=== PATIENT | female | born 1975 | race Caucasian/White ===

== ENCOUNTER 2020-08-25 05:55 | Emergency (ER) | payer OTHER, SELFPAY ==
[2020-08-25] MEDS ORDERED: Alum Hydroxide/Mag Hydroxide 15 ML, Lidocaine 2% 15 ML PO ONE ×2 (06:37)
[2020-08-25] MEDS ORDERED: Acetaminophen/oxyCODONE 325-5 MG Tab PO STA (06:41)
[2020-08-25] MEDS ORDERED: Ketorolac 60 MG/2 ML SDV IM ONE (06:41)
[2020-08-25] MEDS ORDERED: Morphine 4 MG/ML VIAL IM STA (06:55)
--- NOTE | 2020-08-25 07:02 | EDM.PDOC ---
ED HPI GENERAL MEDICAL PROBLEM - General Chief Complaint: Abdominal Pain Stated Complaint: STOMACH PAIN Time Seen by Provider: 08/25/20 06:00 Source of Information: Reports: Patient, Family History Limitations: Reports: No Limitations - History of Present Illness INITIAL COMMENTS - FREE TEXT/NARRATIVE: Patient presented to the ED because of epigastric and right upper quadrant pain. the pain is sharp, 8/10. There is nausea and vomiting x1. There is no fever or chills, changes in bowel movements or urinary symptoms. upper right abd pain Pain Score (Numeric/FACES): 6 - Related Data Allergies Allergy/AdvReac Type Severity Reaction Status Date / Time Penicillins Allergy Hives Verified 08/25/20 06:11 Home Meds: Home Meds Esomeprazole Magnesium [Nexium] 20 mg PO DAILY 08/25/20 [History] FLUoxetine HCl [Fluoxetine] 20 mg PO DAILY 08/25/20 [History] Methylphenidate HCl [Methylphenidate ER] 30 mg PO DAILY 08/25/20 [History] traZODone 50 mg PO BEDTIME 08/25/20 [History] Past Medical History Respiratory History: Reports: Asthma Gastrointestinal History: Reports: GERD Psychiatric History: Reports: ADHD, Depression Social & Family History - Tobacco Use Tobacco Use Status *Q: Former Tobacco User Used Tobacco, but Quit: Yes Month/Year Tobacco Last Used: 1999 ED ROS GENERAL - Review of Systems Review Of Systems: See Below Constitutional: Reports: No Symptoms HEENT: Reports: No Symptoms Respiratory: Reports: No Symptoms Cardiovascular: Reports: No Symptoms Endocrine: Reports: No Symptoms GI/Abdominal: Reports: Abdominal Pain : Reports: No Symptoms Musculoskeletal: Reports: No Symptoms Skin: Reports: No Symptoms Neurological: Reports: No Symptoms Psychiatric: Reports: No Symptoms ED EXAM, GI/ABD - Physical Exam Exam: See Below Exam Limited By: No Limitations General Appearance: Alert, No Apparent Distress Ears: Normal External Exam, Normal Canal, Hearing Grossly Normal Nose: Normal Inspection, Normal Mucosa, No Blood Throat/Mouth: Normal Inspection Head: Atraumatic, Normocephalic Neck: Normal Inspection, Supple, Non-Tender, Full Range of Motion Respiratory/Chest: No Respiratory Distress, Lungs Clear, Normal Breath Sounds, No Accessory Muscle Use, Chest Non-Tender Cardiovascular: Normal Peripheral Pulses, Regular Rate, Rhythm, No Edema, No Gallop, No JVD, No Murmur, No Rub GI/Abdominal Exam: Normal Bowel Sounds, Soft, No Organomegaly, No Distention, No Abnormal Bruit, Other (RUQ T) Back Exam: Normal Inspection, Full Range of Motion Extremities: Normal Inspection, Normal Range of Motion, Non-Tender, No Pedal Edema, Normal Capillary Refill Neurological: Alert, Oriented, CN II-XII Intact, Normal Cognition, Normal Gait, Normal Reflexes, No Motor/Sensory Deficits Psychiatric: Normal Affect, Normal Mood Skin Exam: Warm Course - Vital Signs Text/Narrative:: Lab result was discussed with patient and her mom Morphine 4 mg IM x1 Abdomnal US-see result US report was called in to patient at 11am and will follw up with her primary MD accordingly. Last Recorded V/S: Last Vital Signs Temp 36.9 C 08/25/20 05:55 Pulse 78 08/25/20 07:15 Resp 16 08/25/20 07:15 BP 120/85 08/25/20 07:15 Pulse Ox 98 08/25/20 07:15 - Orders/Labs/Meds Labs: Laboratory Tests 08/25/20 08/25/20 08/25/20 Range/Units 06:31 06:31 06:31 WBC 6.5 (3.0-10.3) x10-3/uL RBC 4.98 (3.60-5.20) x10(6)uL Hgb 14.2 (11.4-15.5) g/dL Hct 43.1 (34.2-48.2) % MCV 86.7 (76.7-100.5) fL MCH 28.5 (23.9-33.9) pg MCHC 32.8 (31.9-34.8) g/dL RDW 14.1 (12.3-16.5) % Plt Count 157 (151-488) x10(3)uL MPV 8.5 (7.1-12.4) fL Neut % (Auto) 57.6 (30.8-76.2) % Lymph % (Auto) 29.9 (18.4-52.1) % [place] % (Auto) 7.4 (4.4-15.7) % Eos % (Auto) 4.4 (0.6-8.1) % Baso % (Auto) 0.7 (0.2-1.5) % Neut # (Auto) 3.8 (1.5-6.3) x10-3/uL Lymph # (Auto) 1.9 (1.0-4.4) x10-3/uL [place] # (Auto) 0.5 (0.3-1.0) x10-3/uL Eos # (Auto) 0.3 (0.0-0.8) x10-3/uL Baso # (Auto) 0.0 (0.0-0.1) x10-3/uL Sodium 141 (135-145) mmol/L Potassium 3.6 (3.5-5.3) mmol/L Chloride 103 (100-110) mmol/L Carbon Dioxide 25 (21-32) mmol/L BUN 21 H (7-18) mg/dL Creatinine 1.3 H (0.55-1.02) mg/dL Est Cr Clr Drug Dosing 54.10 mL/min Estimated GFR (MDRD) 44 L (>60) BUN/Creatinine Ratio 16.2 (9-20) Glucose 117 H (80-116) mg/dL Calcium 8.3 L (8.6-10.2) mg/dL Total Bilirubin 0.4 (0.1-1.3) mg/dL AST 18 (5-25) IU/L ALT 44 H (12-36) U/L Alkaline Phosphatase 89 (56-112) IU/L Total Protein 6.7 (6.0-8.0) g/dL Albumin 3.3 L (3.5-5.2) g/dL Globulin 3.4 g/dL Albumin/Globulin Ratio 1.0 Amylase 38 (25-115) U/L Lipase (73-393) U/L 08/25/20 Range/Units 06:31 WBC (3.0-10.3) x10-3/uL RBC (3.60-5.20) x10(6)uL Hgb (11.4-15.5) g/dL Hct (34.2-48.2) % MCV (76.7-100.5) fL MCH (23.9-33.9) pg MCHC (31.9-34.8) g/dL RDW (12.3-16.5) % Plt Count (151-488) x10(3)uL MPV (7.1-12.4) fL Neut % (Auto) (30.8-76.2) % Lymph % (Auto) (18.4-52.1) % [place] % (Auto) (4.4-15.7) % Eos % (Auto) (0.6-8.1) % Baso % (Auto) (0.2-1.5) % Neut # (Auto) (1.5-6.3) x10-3/uL Lymph # (Auto) (1.0-4.4) x10-3/uL [place] # (Auto) (0.3-1.0) x10-3/uL Eos # (Auto) (0.0-0.8) x10-3/uL Baso # (Auto) (0.0-0.1) x10-3/uL Sodium (135-145) mmol/L Potassium (3.5-5.3) mmol/L Chloride (100-110) mmol/L Carbon Dioxide (21-32) mmol/L BUN (7-18) mg/dL Creatinine (0.55-1.02) mg/dL Est Cr Clr Drug Dosing mL/min Estimated GFR (MDRD) (>60) BUN/Creatinine Ratio (9-20) Glucose (80-116) mg/dL Calcium (8.6-10.2) mg/dL Total Bilirubin (0.1-1.3) mg/dL AST (5-25) IU/L ALT (12-36) U/L Alkaline Phosphatase (56-112) IU/L Total Protein (6.0-8.0) g/dL Albumin (3.5-5.2) g/dL Globulin g/dL Albumin/Globulin Ratio Amylase (25-115) U/L Lipase 59 L (73-393) U/L Meds: Medications Discontinued Medications Generic Name Dose Route Start Last Admin Trade Name Freq PRN Reason Stop Dose Admin Al Hydroxide/Mg Hydroxide 15 0 ml 08/25/20 06:37 ml/ Lidocaine HCl 15 ml PO 08/25/20 06:38 ONETIME ONE Ketorolac Tromethamine 60 mg 08/25/20 06:41 Ketorolac 60 Mg/2 Ml Sdv IM 08/25/20 06:42 ONETIME ONE Morphine Sulfate 4 mg 08/25/20 06:55 08/25/20 07:01 Morphine 4 Mg/Ml Vial IM 08/25/20 06:56 4 mg NOW STA Administration Oxycodone/Acetaminophen 2 tab 08/25/20 06:41 Acetaminophen/Oxycodone 325-5 Mg Tab PO 08/25/20 06:42 NOW STA Departure - Departure Time of Disposition: 07:00 Disposition: Home, Self-Care 01 Condition: Good Clinical Impression: Abdominal pain, Cholelithiasis - Discharge Information Instructions: Abdominal Pain, Adult, [id number] Referrals: PCP,None [Primary Care Provider] - Forms: ED Department Discharge Additional Instructions: Please read discharge instructions on abdominal pain Do not eat or drink until your abdominal ultrasound is done You are scheduled to have the Ultrasound @9 am today You can go home after the ultrasound, we will call you with the result Drink a lot of fluids after the ultrasound because you are dehydrated Sepsis Event Note (ED) - Evaluation Sepsis Screening Result: No Definite Risk - Focused Exam Vital Signs: Vital Signs Temp Pulse Resp BP Pulse Ox 08/25/20 07:15 78 16 120/85 98 08/25/20 05:55 36.9 C 89 17 148/83 H 99
--- NOTE | 2020-08-25 11:11 | US ---
INDICATION: Right upper quadrant pain. RIGHT UPPER QUADRANT/GALLBLADDER ULTRASOUND: Multiple ultrasonic images were obtained utilizing transabdominal probe with 2-D realtime and color flow imaging 08/24/20 - no comparison. The liver had a normal appearance. The gallbladder appears somewhat distended, but was not grossly enlarged. The wall of the gallbladder appears to be slightly prominent in thickness, but is not grossly thickened. There are noted multiple calculi with shadowing within the gallbladder with a positive ultrasound Johnson sign suggested. No pericholecystic fluid was demonstrated. The pancreas was not visualized. The right kidney appeared normal measuring 8.6 x 4.7 x 5.5 cm. IMPRESSION: Cholelithiasis with possible acute cholecystitis. Report was called to Dr. Chapa at 1054 hours, 08/25/20. [facility]
== END 2020-08-25 07:30 | disposition home or self-care (01) ==
LOC: FB.ED 05:55
DX: K80.20 Calculus of gallbladder without cholecystitis without obstruction (principal); J45.909 Unspecified asthma, uncomplicated; K21.9 Gastro-esophageal reflux disease without esophagitis; Z88.0 Allergy status to penicillin; Z79.899 Other long term (current) drug therapy; Z87.891 Personal history of nicotine dependence
CPT/HCPCS: 36415; 76705; 80053; 82150; 83690; 85025; 96372; 99283; 99284-25; J2270

== ENCOUNTER 2020-08-27 09:29 | Day surgery (SDC) | payer OTHER ==
[2020-08-27] MEDS ORDERED: Sodium Chloride 0.9% 10 ML Syringe FLUSH PRN (09:30)
[2020-08-27] MEDS ORDERED: Ondansetron 4 MG/2 ML SDV IVPUSH ONE (09:30)
[2020-08-27] MEDS ORDERED: Labetalol 100 MG/20 ML MDV IV ONE (09:30)
[2020-08-27] MEDS ORDERED: Propofol 200 MG/20 ML SDV IV ONE (09:30)
[2020-08-27] MEDS ORDERED: Glycopyrrolate 0.2 MG/ML 5 ML MDV IV ONE (09:30)
[2020-08-27] MEDS ORDERED: Rocuronium 100 MG/10 ML MDV IV ONE (09:30)
[2020-08-27] MEDS ORDERED: Scopolamine 1.5 MG Transdermal Patch TOP ONE (09:30)
[2020-08-27] MEDS ORDERED: Ketorolac 30 MG/ML SDV IVPUSH ONE (09:30)
[2020-08-27] MEDS ORDERED: Lactated Ringers 1,000 ML IV ONE (09:30)
[2020-08-27] MEDS ORDERED: Midazolam 1 MG/ML 2 ML SDV IV ONE (09:30)
[2020-08-27] MEDS ORDERED: Neostigmine Methylsulfate 10 MG/10 ML MDV IVPUSH ONE (09:30)
[2020-08-27] MEDS ORDERED: Lactated Ringers 1,000 ML IV SCH (09:30)
[2020-08-27] MEDS ORDERED: fentaNYL 100 MCG/2 ML SDV IV ONE (09:30)
[2020-08-27] MEDS ORDERED: ceFAZolin 2 GM in Sodium Chloride 0.9% 50 ML IV ONE (11:00)
--- NOTE | 2020-08-27 11:33 | PCM.PN ---
- General Info Date of Service: 08/27/20 - Review of Systems Systems Review Comment:: 45 y/o female with history of symptomatic gallstones with recent attack of biliary colic here for cholecystectomy. She is stable to proceed. The proposed procedure is again discussed with her and her questions are answered. She agrees to proceed. There has been no significant changes to her health status since her recent evaluation. - Patient Data Vitals - Most Recent: Last Vital Signs Temp 99.2 F 08/27/20 10:17 Pulse 116 H 08/27/20 10:17 Resp 16 08/27/20 10:17 BP 127/93 H 08/27/20 10:17 Pulse Ox 96 08/27/20 10:17 Weight - Most Recent: 214 lb Lab Results Last 24 Hours: Laboratory Results - last 24 hr 08/27/20 08/27/20 Range/Units 08:52 10:00 Urine HCG, Qual Negative (NEGATIVE) SARS-CoV-2 RNA (JALYN) Negative (NEGATIVE) Med Orders - Current: Current Medications Lactated Ringer's (Ringers, Lactated) 1,000 mls @ 125 mls/hr IV ASDIRECTED EDWINA Last Admin: 08/27/20 10:16 Dose: 125 mls/hr Documented by: Sodium Chloride (Sodium Chloride 0.9% 10 Ml Syringe) 10 ml FLUSH ASDIRECTED PRN PRN Reason: Keep Vein Open Discontinued Medications Cefazolin Sodium/Dextrose (Ancef 2 Gm/50 Ml) 50 mls @ 100 mls/hr IV ONETIME ONE Stop: 08/27/20 11:29 - Patient Data Lab Results Last 24 hrs: Laboratory Results - last 24 hr 08/27/20 08/27/20 Range/Units 08:52 10:00 Urine HCG, Qual Negative (NEGATIVE) SARS-CoV-2 RNA (JALYN) Negative (NEGATIVE) Sepsis Event Note - Focused Exam Vital Signs: Vital Signs Temp Pulse Resp BP Pulse Ox 08/27/20 10:17 99.2 F 116 H 16 127/93 H 96 - Problem List Review Problem List Initiated/Reviewed/Updated: Yes - My Orders Last 24 Hours: My Active Orders 08/26/20 13:38 Resuscitation Status Routine 08/27/20 Breakfast Nothing Per Oral Diet [DIET] 08/27/20 09:30 Patient to Empty Bladder [RC] ASDIRECTED RT Incentive Spirometry [RC] ASDIRECTED Verify Patient Consent Obtain [RC] ASDIRECTED Lactated Ringers [Ringers, Lactated] 1,000 ml IV ASDIRECTED Sodium Chloride 0.9% [Saline Flush] 10 ml FLUSH ASDIRECTED PRN Peripheral IV Insertion Adult [OM.PC] Routine Sequential Compression Device [OM.PC] Routine - Assessment Assessment:: Symptomatic gall stones - Plan Plan:: Cholecystectomy
[2020-08-27] MEDS ORDERED: Bupivacaine 0.5%/EPINEPHrine 1:200,000 50 ML MDV INJECT ONE (11:43)
--- NOTE | 2020-08-27 13:08 | PCM.OPNOTE ---
- General Post-Op/Procedure Note Date of Surgery/Procedure: 08/27/20 Operative Procedure(s): Laparoscopic Cholecystectomy Findings: Acutely inflamed gallbladder with stones Pre Op Diagnosis: Symptomatic Cholelithiasis Post-Op Diagnosis: Acute Cholecystitis with stones Anesthesia Technique: MAC Primary Surgeon: Nickolas Galvez Pathology: Gallbladder with stones Output, Urine Amount: 0 EBL in mLs: 20 Complications: None Condition: Good
--- NOTE | 2020-08-27 21:25 | OR ---
DATE OF OPERATION: 08/27/2020 SURGEON: Nickolas Galvez MD PREOPERATIVE DIAGNOSIS: Symptomatic cholelithiasis. POSTOPERATIVE DIAGNOSIS: Acute cholecystitis with cholelithiasis. OPERATION PERFORMED: Laparoscopic cholecystectomy. INDICATIONS FOR SURGERY: This 45-year-old female developed right upper quadrant abdominal pain, and upon evaluation, was found to have gallstones. This is felt to be the source of her symptoms and she comes for cholecystectomy. FINDINGS: The gallbladder is acutely inflamed and distended and contains multiple stones. The wall is quite thick and there is edematous fluid around the gallbladder. Some adhesions of the fatty omentum to the undersurface of the gallbladder as well as a markedly thickened gallbladder wall. The liver and other nearby organs appear normal as viewed laparoscopically. DESCRIPTION OF PROCEDURE: The patient was taken to the operating room. She was given general endotracheal anesthesia and the abdomen was sterilely prepped and draped. An infraumbilical stab wound incision was made. Through this, a Veress needle was inserted and pneumoperitoneum via this needle to a pressure of 15 mmHg was achieved with carbon dioxide. The Veress needle was then replaced with a 12 mm trocar, into which the 5 mm variable angled laparoscopic camera was inserted. Under direct visualization, 5 mm trocars were placed in the subxiphoid midline and in 2 areas of the right abdomen. All trocar sites were infiltrated with Marcaine prior to incision. Intra-abdominal inspection was carried out and attention was turned to the gallbladder. Blunt dissection cleared the fatty tissue adhesions from the undersurface of the gallbladder, but the gallbladder was distended and tense, and so aspiration of the gallbladder with a needle attached to suction is carried out to decompress the gallbladder so that it could be manipulated. Manipulation was still somewhat difficult because of the thickened gallbladder wall, but the gallbladder was able to be secured and with grasping forceps placed through the lateral trocars and retracted superiorly and anteriorly. Fatty tissue overlying the lower portion of the gallbladder as well as the cystic duct and cystic artery was carefully cleared, and once the cystic duct had been clearly identified including its junction with the gallbladder, the cystic duct was milked and it was doubly clipped and divided near the gallbladder with great care being used to avoid any injury to the common bile duct. Additional dissection in the triangle of Calot identified the cystic artery, which was doubly clipped and divided near the gallbladder. The gallbladder was then dissected free from the undersurface of the liver using electrocautery device. This was somewhat difficult because of the marked edema and inflammation of the tissues around the gallbladder, but eventually this was able to be accomplished. The gallbladder was placed into an Endo Retrieval bag and then removed through the largest trocar site. Because of these multiple stones and thick gallbladder wall, the fascial incision had to be extended slightly to allow removal of the gallbladder. Reinspection of the operative region was performed and this area was copiously irrigated. Full hemostasis of the gallbladder bed was assured with the use of electrocautery. With no sign of bleeding or any other complication, the trocars were removed under direct visualization and pneumoperitoneum was evacuated. The fascia of the umbilical trocar site was closed with a running 0 Vicryl suture. The wounds were irrigated with Betadine and saline solution. Skin incisions approximated with interrupted 4-0 Vicryl in subcuticular stitch. Benzoin and Steri-Strips were applied followed by antibiotic ointment and sterile dressings. The patient was awakened, extubated, and taken from the operating room in satisfactory condition. ESTIMATED BLOOD LOSS: 20 mL. COMPLICATIONS: None. PROGNOSIS: Good. /[id number] ELVIA/VIVIANA
== END 2020-08-27 14:03 | disposition home or self-care (01) ==
LOC: FB.SDS 09:29
PROVIDERS: ATTEND Surgery
DX: K80.00 Calculus of gallbladder with acute cholecystitis without obstruction (principal); E78.5 Hyperlipidemia, unspecified; J45.909 Unspecified asthma, uncomplicated; K21.9 Gastro-esophageal reflux disease without esophagitis; Z01.812 Encounter for preprocedural laboratory examination; Z20.822 Contact with and (suspected) exposure to COVID-19; Z79.899 Other long term (current) drug therapy; Z88.0 Allergy status to penicillin; Z88.2 Allergy status to sulfonamides
CPT/HCPCS: 00790; 47562; 81025; 87635; 88304; 94150; A9270; J0690; J1885; J2250; J2405; J2704; J2710; J3010; J3490; J7120; U0002

== ENCOUNTER 2020-08-29 23:05 | Emergency (ER) | payer OTHER ==
[2020-08-29] MEDS ORDERED: Ondansetron 4 MG Tab.DIS PO ONE (23:07)
[2020-08-29] MEDS ORDERED: Ondansetron 8 MG Tab.DIS PO ONE (23:08)
[2020-08-29] MEDS ORDERED: Prochlorperazine 10 MG/2 ML SDV IM ONE (23:34)
--- NOTE | 2020-08-29 23:43 | EDM.PDOC ---
ED HPI GENERAL MEDICAL PROBLEM - General Chief Complaint: General Stated Complaint: NAUSEA, POST SURGERY Time Seen by Provider: 08/29/20 23:10 Source of Information: Reports: Patient History Limitations: Reports: No Limitations - History of Present Illness INITIAL COMMENTS - FREE TEXT/NARRATIVE: had gallbladder surgery last 3 days . has been doing well till tonight Developed upset stomach , nausea no fever or chills , no diarrhea Onset: Today Onset Date: 08/29/20 Duration: Day(s):, Getting Worse Location: Reports: Abdomen Quality: Reports: Dull, Pressure Severity: Mild Improves with: Reports: None Worsens with: Reports: None Context: Reports: Other (post op) Associated Symptoms: Reports: No Other Symptoms - Related Data Allergies Allergy/AdvReac Type Severity Reaction Status Date / Time Penicillins Allergy Hives Verified 08/30/20 00:49 Sulfa (Sulfonamide Allergy Nausea Verified 08/30/20 00:49 Antibiotics) Home Meds: Home Meds FLUoxetine HCl [Fluoxetine] 20 mg PO DAILY 08/25/20 [History] Methylphenidate HCl [Methylphenidate ER] 20 mg PO BID 08/25/20 [History] traZODone 50 mg PO BEDTIME 08/25/20 [History] Omeprazole 20 mg PO ACBREAKFAST 08/26/20 [History] Acetaminophen/HYDROcodone [[place] 325-5 MG] 1 - 2 tab PO Q4H PRN 08/27/20 [History] Fexofenadine/Pseudoephedrine [Jessica-D 24 Hour Tablet] 1 tab PO DAILY 08/27/20 [History] Sennosides/Docusate Sodium [Senna-Docusate Sodium Tablet] 1 each PO BID #30 tablet 08/29/20 [Rx] Past Medical History HEENT History: Reports: Allergic Rhinitis, Impaired Vision Cardiovascular History: Reports: High Cholesterol Respiratory History: Reports: Asthma Gastrointestinal History: Reports: GERD Genitourinary History: Reports: None MANAGER STONE History: Reports: None Musculoskeletal History: Reports: None Neurological History: Reports: None Psychiatric History: Reports: ADHD, Depression Endocrine/Metabolic History: Reports: Obesity/BMI 30+ Hematologic History: Reports: None Immunologic History: Reports: None Oncologic (Cancer) History: Reports: None Dermatologic History: Reports: None - Past Surgical History Head Surgeries/Procedures: Reports: None HEENT Surgical History: Reports: None Cardiovascular Surgical History: Reports: None Respiratory Surgical History: Reports: None GI Surgical History: Reports: None Female Surgical History: Reports: None Endocrine Surgical History: Reports: None Neurological Surgical History: Reports: None Musculoskeletal Surgical History: Reports: None Oncologic Surgical History: Reports: None Dermatological Surgical History: Reports: None Social & Family History - Caffeine Use Caffeine Use: Reports: Soda ED ROS GENERAL - Review of Systems Review Of Systems: Comprehensive ROS is negative, except as noted in HPI. ED EXAM, GENERAL - Physical Exam Exam: See Below Exam Limited By: No Limitations General Appearance: Alert, WD/WN, No Apparent Distress Eye Exam: Bilateral Eye: EOMI Ears: Normal External Exam Nose: Normal Inspection Throat/Mouth: Normal Oropharynx Head: Atraumatic, Normocephalic Neck: Supple, Non-Tender Respiratory/Chest: Lungs Clear, Normal Breath Sounds, No Accessory Muscle Use, Chest Non-Tender Cardiovascular: Regular Rate, Rhythm GI/Abdominal: Soft, Non-Tender, Distended, Abnormal Bowel Sounds (hypoactive) Back Exam: Full Range of Motion, CVA Tenderness (L) Extremities: Normal Range of Motion, Non-Tender, No Pedal Edema Neurological: Alert, Oriented, CN II-XII Intact, Normal Cognition Psychiatric: Normal Affect Skin Exam: Warm, Dry, Intact Course - Vital Signs Last Recorded V/S: Last Vital Signs Temp 36.4 C 08/29/20 23:05 Pulse 89 08/29/20 23:05 Resp 18 08/29/20 23:05 BP 134/98 H 08/29/20 23:05 Pulse Ox 98 08/29/20 23:05 - Orders/Labs/Meds Meds: Medications Discontinued Medications Generic Name Dose Route Start Last Admin Trade Name Suzanne PRN Reason Stop Dose Admin Ondansetron HCl 8 mg 08/29/20 23:08 08/29/20 23:08 Ondansetron 8 Mg Tab.Dis PO 08/29/20 23:09 8 mg ONETIME ONE Administration Prochlorperazine Edisylate 10 mg 08/29/20 23:34 08/29/20 23:38 Prochlorperazine 10 Mg/2 Ml Sdv IM 08/29/20 23:35 10 mg ONETIME ONE Administration Senna/Docusate Sodium 2 tab 08/29/20 23:44 08/29/20 23:48 Docusate Sodium/Sennosides 50-8.6 Mg Tab PO 08/29/20 23:45 2 tab ONETIME ONE Administration - Re-Assessments/Exams Free Text/Narrative Re-Assessment/Exam: 08/29/20 23:45 pt was given Zofran and it made her feel better but did not stop the nausea of note since post surgery has been on hydrocodone but not on stool softener or laxative pt given Senna here 08/30/20 13:08 Departure - Departure Time of Disposition: 00:05 Disposition: Home, Self-Care 01 Condition: Fair Clinical Impression: Status post cholecystectomy, Constipation due to opioid therapy, Nausea - Discharge Information *PRESCRIPTION DRUG MONITORING PROGRAM REVIEWED*: Not Applicable *COPY OF PRESCRIPTION DRUG MONITORING REPORT IN PATIENT SINGH: Not Applicable Prescriptions: Sennosides/Docusate Sodium [Senna-Docusate Sodium Tablet] 1 each PO BID #30 tablet Instructions: Constipation, Adult, [id number] Referrals: PCP,Not In Area [Primary Care Provider] - Forms: ED Department Discharge Additional Instructions: 1) Increase fluid and fiber intake 2) take stool softener with opiod analgesic ( hydrocodone) 3) Make appointment to see surgeon for other concerns Care Plan Goals: Take Zofran one tablet every 6 hours as needed for nausea.
== END 2020-08-30 00:05 | disposition home or self-care (01) ==
LOC: FB.ED 23:06
DX: K59.03 Drug induced constipation (principal); T40.2X5A Adverse effect of other opioids, initial encounter; R11.0 Nausea; J45.909 Unspecified asthma, uncomplicated; K21.9 Gastro-esophageal reflux disease without esophagitis; E66.9 Obesity, unspecified; Z68.34 Body mass index [BMI] 34.0-34.9, adult; Z88.0 Allergy status to penicillin; Z90.49 Acquired absence of other specified parts of digestive tract; Z88.2 Allergy status to sulfonamides
CPT/HCPCS: 96372; 99283; A9270; J0780